=== PATIENT | male | born 1935 | race Caucasian/White ===

== ENCOUNTER → 2016-10-14 | Day surgery (SDC) | payer OTHER ==
[~2016-10-14] VITALS: Ht 165.1 cm; Wt 72.6 kg
[2016-10-14 09:26] VITALS: BP 143/91
[2016-10-14 09:33] VITALS: BP 119/68
[2016-10-14 09:48] VITALS: BP 115/71
[2016-10-14 12:40] VITALS: BP 123/70
[2016-10-14 15:15] VITALS: BP 132/78
== END | disposition home or self-care (01) ==
LOC: DS 08:00
PROC: 30233N1 Transfusion of Nonautologous Red Blood Cells into Peripheral Vein, Percutaneous Approach (ICD-10-PCS; principal; 2016-10-14)
DX: D64.9 Anemia, unspecified (principal); Z96.653 Presence of artificial knee joint, bilateral
CPT/HCPCS: J7040; P9016; Q0163

== ENCOUNTER 2017-02-26 09:34 | Day surgery (SDC) | payer OTHER ==
[~2017-02-26] VITALS: Ht 165.1 cm; Wt 69.8 kg
[2017-02-26 10:03] VITALS: BP 129/68
[2017-02-26 15:06] VITALS: BP 120/68
== END 2017-02-26 13:55 | disposition home or self-care (01) ==
LOC: DS 09:34 → OR 11:00 → DS 13:55
PROVIDERS: Surgery
PROC: 0WHG43Z Insertion of Infusion Device into Peritoneal Cavity, Percutaneous Endoscopic Approach (ICD-10-PCS; principal; 2017-02-26 11:00)
DX: N18.6 End stage renal disease (principal); I24.8 Other forms of acute ischemic heart disease; E11.9 Type 2 diabetes mellitus without complications; D64.9 Anemia, unspecified
CPT/HCPCS: J0330; J0690; J2405; J2704; J3010; J3490; J7030